=== PATIENT | male | born 1975 | race African-American/Black ===

== ENCOUNTER 2023-10-06 10:51 | Emergency (ER) | payer SELFPAY ==
[2023-10-06 11:16] VITALS: RESP 18; BMI 28.3
[2023-10-06 12:38] LABS: PH,URINE 5.5 (5.0-8.0); URINE APPEARANCE CLEAR; URINE BILIRUBIN NEGATIVE (NEGATIVE); URINE COLOR YELLOW; URINE GLUCOSE (UA) NEGATIVE (NEGATIVE); URINE KETONE NEGATIVE (NEGATIVE); URINE LEUK ESTERASE NEGATIVE (NEGATIVE); URINE NITRITE NEGATIVE (NEGATIVE); URINE PROTEIN NEGATIVE (NEGATIVE); URINE UROBILINOGEN 0.2 mg/dL (0.2-1.0)
[2023-10-06] MEDS ORDERED: IBUPROFEN 400 MG TABLET (FP) PO ONE ×2 (12:51→12:58)
[2023-10-06] MEDS ORDERED: ACETAMINOPHEN 500 MG TABLET (FP) PO ONE (12:51)
[2023-10-06] MEDS ORDERED: ACETAMINOPHEN 500 MG TABLET (FP) ONE (12:58)
[2023-10-06 13:37] VITALS: BP 116/72; PULSE 80; TEMP 100.5
== END 2023-10-06 14:04 | disposition home or self-care (01) ==
LOC: JERFT 10:51
DX: R05.9 Cough, unspecified (principal); M79.10 Myalgia, unspecified site; R09.81 Nasal congestion; J02.9 Acute pharyngitis, unspecified; R68.83 Chills (without fever); R35.0 Frequency of micturition; R10.30 Lower abdominal pain, unspecified; J10.1 Influenza due to other identified influenza virus with other respiratory manifestations; Z20.822 Contact with and (suspected) exposure to COVID-19
CPT/HCPCS: 0241U-QW; 81003; 87086; 99283-25